=== PATIENT | female | born 2000 | race Caucasian/White ===

== ENCOUNTER 2020-09-10 16:59 | Emergency (ER) | payer OTHER, SELFPAY ==
--- NOTE | ~2020-09-10 | CT_ITS ---
EXAMINATION: CT chest abdomen pelvis w con DATE: 09/10/2020 19:31 INDICATION: Abdominal pain and cramping TECHNIQUE: Computed tomography (CT) of the abdomen, and pelvis was performed with 100 mL Omnipaque-35 0 intravenous contrast. Automated exposure control and iterative reconstruction technique were employ ed. The dose-length product was 205.02 mGy-cm. COMPARISON: None FINDINGS: Lung bases are clear. Heart size is normal. No pericardial or pleural effusion. Liver, gallbladder, s pleen, pancreas, bilateral adrenal glands and kidneys are normal. The anteverted uterus, bladder and bilateral adnexa are unremarkable. The appendix is normal. There is some movement artifact involving multiple loops of bowel in the upper pelvis. There is however no evident bowel wall thickening or dil ation to suggest obstruction. Small amount of likely physiologic free fluid in the pelvis. No abscess or free intraperitoneal gas. No pathologically enlarged abdominal or pelvic lymphadenopathy. Bones a re unremarkable. IMPRESSION: 1. No acute intra-abdominal/pelvic process. Reviewed, dictated and finalized at location A. URE ROOM WORKER
[2020-09-10 17:26] VITALS: BP 136/79; PULSE 62; RESP 18; TEMP 36.2; O2SAT 100
--- NOTE | 2020-09-10 17:45 | ED.ABDPAIN ---
HPI - Abdominal Pain General Chief Complaint: Abdominal Pain Stated Complaint: abd pain, bloody stools Time Seen by Provider: 09/10/20 17:37 Source: patient Mode of arrival: ambulatory Limitations: no limitations History of Present Illness HPI narrative: Patient is a 20-year-old female complaining of lower abdominal cramping, 4 out of 10, nonradiating, accompanied by diarrhea and blood in her stool, had 2 episodes yesterday, none today. Patient denies any nausea, vomiting, fever or chills. Patient denies any hematemesis, hemoptysis or melena. Related Data Allergies Allergy/AdvReac Type Severity Reaction Status Date / Time erythromycin base AdvReac Unknown Nausea Verified 09/10/20 17:49 Review of Systems Review of Systems: All systems reviewed & are unremarkable except as noted in HPI and below Constitutional: Constitutional: Denies body ache(s), Denies chills, Denies excessive sweating, Denies fatigue, Denies fever(s), Denies headache(s), Denies lethargy, Denies malaise, Denies weakness and Denies weight loss Eyes: Eyes: Denies blurry vision, Denies change in vision and Denies loss of vision ENT: Denies dizziness, Denies ear discharge, Denies headache(s), Denies lip swelling, Denies epistaxis, Denies nasal congestion, Denies neck pain, Denies throat swelling and Denies tongue swelling Cardiovascular: Cardiovascular: Denies chest pain, Denies chest pain at rest, Denies chest pain with activity, Denies diaphoresis, Denies rapid heart rate, Denies edema, Denies irregular heart rhythm, Denies lightheadedness, Denies palpitations, Denies dyspnea and Denies dyspnea on exertion Respiratory: Respiratory: Denies chest congestion, Denies cough, Denies hemoptysis, Denies dyspnea and Denies dyspnea on exertion Gastrointestinal: Gastrointestinal: Denies melena, Denies diarrhea, Denies nausea, Denies vomiting and Denies hematemesis Musculoskeletal: Musculoskeletal: Denies abnormal gait, Denies deformity, Denies joint swelling, Denies limited range of motion, Denies neck pain and Denies numbness Neurologic: Denies Abnormal speech present, Denies abnormal gait, Denies confusion, Denies dizziness, Denies headache(s), Denies focal weakness, Denies loss of vision, Denies numbness, Denies Other visual disturbances, Denies Sensory deficit (Neuro) and Denies weakness Psychiatric: Psychiatric: Denies confusion, Denies depression, Denies auditory hallucinations, Denies homicidal ideation and Denies suicidal ideation Endocrine: Endocrine: Denies cold intolerance, Denies excessive sweating, Denies fatigue, Denies heat intolerance and Denies palpitations Hematologic/Lymphatic: Hematologic/Lymphatic: Denies easy bleeding and Denies easy bruising Allergic/Immunologic: Allergic/Immunologic: Denies lip swelling, Denies throat swelling and Denies tongue swelling PMFSH Family History Family History Grandparent Diabetes mellitus Family history of glaucoma Hypertension Malignant neoplasm of prostate Family history of malignant neoplasm Mother Family history of arthritis Social History Social History Smoking status: Never smoker Alcohol intake: current Drinks per week: 2 Exam Const: General: cooperative, healthy appearing, comfortable, no acute distress, well developed, alert and awake; No confusion Orientation/consciousness: oriented to person, oriented to place, oriented to time, patient oriented x3 and No confusion Limitations: no limitations HENMT: Head: normal to inspection, normocephalic and atraumatic Ears: hearing grossly normal bilaterally, TM normal on the right and TM normal on the left General nose exam: Normal external nose present, Normal nares present and No nasal discharge present Face and sinus: normal facial exam Mouth: Yes Normal oral and palatal mucosa present, Yes lip normal, Yes tongue normal and Yes oropharynx
[2020-09-10] MEDS: SODIUM CHLORIDE 0.9% IV 1,000 ML 999 ML IV CONT (17:49)
[2020-09-10 17:50] LABS: Alanine Aminotransferase 15 U/L (4-35); Albumin Level 3.9 g/dL (3.5-5.1); Alkaline Phosphatase 45 U/L (38-126); Anion Gap 3 mmol/L (8-16); Aspartate Amino Transferase 30 U/L (14-36); Bilirubin,Total 0.3 mg/dL (0.2-1.3); Blood Urea Nitrogen 12 mg/dL (7-17); Calcium 8.6 mg/dL (8.4-10.2); Carbon Dioxide 29 mmol/L (22-30); Chloride 105 mmol/L (98-107); Estimated CRCL calculation 71 ml/min; Estimated Glomerular Filt Rate > 60; Glucose 93 mg/dL (65-105); Lipase 67 U/L (23-300); Potassium 3.5 mmol/L (3.4-5.0); Sodium 137 mmol/L (137-145)
[2020-09-10 18:08] LABS: Add Urine Microscopic? NO; Appearance Urine Clear (Clear); Bilirubin Urine Negative (Negative); Blood Urine Negative (Negative); Color Urine Straw (Yellow); Glucose Urine UA Negative (Negative); Ketones Urine Negative (Negative); Leukocyte Esterase Ur Negative LEU/UL (Negative); Nitrate Urine Negative (Negative); Protein Urine Negative (Negative); Specific Grav Ur 1.009 (1.001-1.035); Urobilinogen Urine Negative mg/dL (<2.0)
[2020-09-10 18:09] LABS: Basophils Absolute Auto 0.1 K/mm3 (0.0-0.1); Basophils Percent Auto 0.9 % (0.2-1.2); Eosinophils Absolute Auto 0.1 K/mm3 (0-0.3); Eosinophils Percent Auto 1.6 % (0-4.4); Hematocrit 39.2 % (37.0-47.0); Hemoglobin 13.7 g/dL (12.0-15.0); Immature Granulocyte Absolute 0.01 K/mm3 (0.00-0.031); Immature Granulocyte Percent A 0.2 % (0-0.5); Lymphocytes Absolute Auto 2.22 K/mm3 (0.9-3.2); Lymphocytes Percent Auto 39.3 % (18.3-44.2); Mean Corpuscular HGB Conc 34.9 g/dl (32-36); Mean Corpuscular Hemoglobin 30.4 pg (26-34); Mean Corpuscular Volume 87.1 fl (80-100); Monocytes Absolute Auto 0.5 K/mm3 (0.1-0.6); Monocytes Percent Auto 8.3 % (2.6-8.5); Neutrophils Absolute Auto 2.8 K/mm3 (1.3-6.7); Neutrophils Percent Auto 49.7 % (45.5-73.1); Platelet Count Result 255 k/mm3 (150-375); Red Cell Distribution Width 11.3 % (11.5-14.5); White Blood Count 5.7 K/mm3 (4.5-10.0)
[2020-09-10 19:50] VITALS: BP 122/84; PULSE 65; RESP 12; O2SAT 100
[2020-09-10 20:20] VITALS: BP 113/79; PULSE 100; RESP 15; O2SAT 100
== END 2020-09-10 20:55 | disposition home or self-care (01) ==
PROVIDERS: Emergency Medicine; Emergency Provider Emergency Medicine; PCP Family Medicine
DX: K52.9 Noninfective gastroenteritis and colitis, unspecified (principal)
CPT/HCPCS: 36415; 74177; 80053; 81003; 81025; 83690; 85025; 96360; 99284; J7030; Q9967

== ENCOUNTER → 2022-09-22 11:32 | Outpatient (CLI) | payer OTHER, SELFPAY ==
--- NOTE | ~2022-09-22 | XR_ITS ---
EXAMINATION: XR fl inj knee RT for MR/CT DATE: 09/22/2022 12:27 INDICATION: Complex tear of the medial meniscus of the right knee presented with generalized right kn ee pain and swelling after palpable pop while doing squats 3 weeks prior. TECHNIQUE: A time-out was performed to verify the patient's name, date of , and procedure to b e performed. The procedure including the risks, benefits, and alternatives was discussed with the pat ient. Risks discussed included bleeding and infection. The patient understood the risks and agreed to proceed. The skin overlying the lateral right knee joint was prepped and draped in usual sterile fa shion. Anesthetic was administered with 1% lidocaine subcutaneously. A 22 G needle was advanced und er fluoroscopic guidance into the joint. Injection of 1 mL of Omnipaque 240 confirmed intra-articula r position of the needle. Subsequently, injectate consisting of 40 mL of 7:3:2 mixture of sterile sa line:Omnipaque 240:1% lidocaine mixed 200:1 with 529 mg/mL Multihance gadolinium contrast was injecte d with intra-articular administration confirmed with intermittent fluoroscopy. The needle was removed and the entry site was cleaned and dressed. There were no immediate complications. Fluoroscopy expo sure time was 0.1 minutes. The total number of images was 9. FINDINGS: Real-time fluoroscopy demonstrates the needle in the right knee joint. IMPRESSION: 1. Successful right knee joint injection of dilute gadolinium contrast mixture for subsequent MRI art hrogram which will be dictated separately. Reviewed, dictated and finalized at location A. NGUAL SOCIAL WORKER IMPRESSION: 1. Successful right knee joint injection of dilute gadolinium contrast mixture for subsequent MRI arthrogram which will be dictated separately.
--- NOTE | ~2022-09-22 | MR_ITS ---
EXAMINATION: MR knee RT w con DATE: 09/22/2022 12:41 INDICATION: Complex medial meniscal tear TECHNIQUE: Magnetic resonance imaging (MRI) of the right knee was performed without intravenous contr ast. Sequences included coronal PD-weighted FSE, coronal PD-weighted FS FSE, sagittal T2-weighted FS E, sagittal PD-weighted FS FSE and axial PD weighted fat saturated FSE. COMPARISON: None. FINDINGS: Medial compartment: Mild increased T1 contrast signal extends into a complex tear of the posterior horn and posterior bod y of the medial meniscus with both a longitudinal horizontal component extending to the inferior bandar cular surface and a component at the posterior horn which appears oblique in all 3 planes contacting the superior and inferior articular surfaces at the inner third of the posterior horn. Contrast exten ds into a small multiloculated para meniscal or cyst which extends 1.4 cm medial collateral and 5 x 4 mm maximal orthogonal dimensions along the periphery of the posterior horn. Articular cartilage is n ormal. Lateral compartment: Lateral meniscus is normal. Small region of heterogeneous cartilage signal with tiny focus of suscept ibility artifact at the posterior most weightbearing lateral femoral condyle. Cartilage is otherwise normal. Patellofemoral compartment: Cartilage swelling and deep fissuring at the mid inferior patellar apical ridge and inferior aspect o f the lateral patellar facet, the latter with underlying mild subarticular edema-like signal change. Less severe partial thickness chondral fissuring at the caudal half of the medial patellar facet. Sag ittal oriented deep chondral fissure with small amount of underlying subarticular edema-like signal c hange at the cephalad aspect of the medial trochlea. Mild chondral surface regularity and minimal und erlying edema-like signal change at the caudal aspect of the lateral trochlea. Ligaments and tendons: Anterior and posterior cruciate ligaments are normal. The medial collateral ligament and fibular kay ateral ligament complex are normal. The extensor mechanism is normal. The visualized medial and later al hamstring tendons as well as the iliotibial band are normal. Fluid: Contrast extends into a small multilobulated Rendon's cyst. A few tiny low signal intensity injected g as bubbles in the nondependent recess along side the odd facet of the patella. No loose osteochondral bodies identified. Osseous/other: Bone alignment is normal. No fracture or pathologic marrow replacing process. Additional foci of susc eptibility artifact likely related to prior surgery projecting along the lateral side of the intratro chanteric notch posterior to the footplate of the anterior cruciate ligament. IMPRESSION: 1. Complex tear of the posterior horn and posterior body of the medial meniscus with associated small multilobulated para meniscal cyst along the periphery of the posterior horn. 2. 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 3. Small Rendon's cyst. Reviewed, dictated and finalized at location A. T NURSE MANAGER IMPRESSION: 1. Complex tear of the posterior horn and posterior body of the medial meniscus with associated small multilobulated para meniscal cyst along the periphery of the posterior horn. 2. Mild patellofemoral osteoarthritis with regions of high-grade patellar and t rochlear chondromalacia. 3. Small Rendon's cyst.
== END ==
DX: S83.231A Complex tear of medial meniscus, current injury, right knee, initial encounter (principal); X58.XXXA Exposure to other specified factors, initial encounter; M17.11 Unilateral primary osteoarthritis, right knee; M71.21 Synovial cyst of popliteal space [Baker], right knee
CPT/HCPCS: 20610; 73722; 77002; A9577; Q9967

== ENCOUNTER 2024-05-08 08:02 | Emergency (ER) | payer OTHER, SELFPAY ==
[2024-05-08 08:11] VITALS: BP 126/83; PULSE 117; RESP 16; TEMP 36.9; O2SAT 100
--- NOTE | 2024-05-08 08:20 | ED.URI ---
HPI - URI/Sore Throat General Chief Complaint: Upper Respiratory Infection Stated Complaint: congestion,sorethroat Source: patient, RN notes reviewed and old records reviewed Mode of arrival: ambulatory Limitations: no limitations History of Present Illness HPI Narrative: 23 year old female who presents to [facility] with complaints of head congestion, cough, nasal drainage since the 30 of April, Patient reports that her symptoms increased since Tuesday the 04 of May with cough, aching all over, generally feeling bad. Patient states she started with a sore throat yesterday and she had a 99.8F temp this morning. Patient has been taking Sudafed, Mucinex, and also some DayQuil for her symptoms. Patient reports that she needs to get feeling better because her bridal shower is this weekend. MD elicited complaint: fever (low grade), cough, sore throat, rhinorrhea and nasal congestion Onset (ago): day(s) (9-10 days) Consistency: progressively worsening Severity: moderate Able to tolerate fluids by mouth: Yes Treatments prior to arrival: other (dayQuil Mucinex, and Sudafed) Related Data Home Medications Medication Instructions Recorded Confirmed levonorgestrel 14 mcg/24 hr (up to 1 device intrauterine ONCE 02/22/23 05/08/24 3 yrs) 13.5 mg intrauterine device ([facility]) Allergies Allergy/AdvReac Type Severity Reaction Status Date / Time No Known Allergies Allergy Verified 05/08/24 08:28 Review of Systems Review of Systems: CONSTITUTIONAL: Reports malaise, chills, sweats, or fever. EYES: Denies visual changes, redness, or discharge. ENT: Reports rhinorrhea, congestion, sinus pain,no otalgia and positive sore throat. CARDIOVASCULAR: Denies chest pain, palpitations, or edema. RESPIRATORY: Reports cough.? Denies dyspnea. GASTROINTESTINAL: Denies abdominal pain, nausea, vomiting, diarrhea SKIN: Denies rash or itching. MUSCULOSKELETAL: Reports myalgia. NEUROLOGIC: Denies headache. All systems reviewed & are unremarkable except as noted in HPI and below PMFSH Past Medical History Medical History Encounter for initial insertion of intrauterine contraceptive device Surgical History Surgical History H/O gynecological procedure hira insertion H/O right knee surgery 10/2020 Family History Family History Grandparent Diabetes mellitus Family history of glaucoma Hypertension Malignant neoplasm of prostate Family history of malignant neoplasm Mother Family history of arthritis Social History Social History Smoking status: Never smoker Alcohol intake: current Drinks per week: 2 Substance use: never Substance use type: does not use Lack of Transportation: No Lack of Food: Never True Current Housing: I Have Housing Concerned About Future Housing: No Difficulty Paying Gas/Electric Bills: No Difficulty Paying for Meds: No Currently Unemployed: No Education: Bachelor's Degree Difficulty w/ Childcare or Family Care: No Living arrangements: with family Occupation/Education: occupation Additional occupation/education comments: Teacher Gender identity (if verbalized by the patient): Female Sexual Orientation (if Verbalized by the Patient): Straight or Heterosexual Comments At time of signature, agree with nursing past medical, surgical, social and family history. There is no relevant family history pertinent to the presenting complaint Exam Narrative: GENERAL: Well-appearing, well-nourished, and in no acute distress. HEAD: Normocephalic EYES: PERRLA, conjunctivae clear ENT: Nares clear, turbinates edematous and erythematous, clear discharge. Mucous membranes moist, sinus pressure headache, TM pearly patterson with dull light reflex
[2024-05-08 08:40] LABS: EDSTREPNEGPOS1 Negative (Negative)
[2024-05-08 08:50] LABS: EDCOVIDSCREEN Negative (Negative)
[2024-05-08 08:51] LABS: EDINFLUASCREEN Negative (Negative); EDINFLUBSCREEN Negative (Negative)
== END 2024-05-08 08:56 | disposition home or self-care (01) ==
PROVIDERS: Emergency Provider Registered Nurse
DX: J32.9 Chronic sinusitis, unspecified (principal); Z20.822 Contact with and (suspected) exposure to COVID-19
CPT/HCPCS: 87081; 87426; 87804; 87880; 99213; G0463

== ENCOUNTER 2025-06-17 15:53 | Inpatient (IN) | payer OTHER, SELFPAY ==
[2025-06-17] VITALS (26 sets, daily range): BP systolic 104–138; BP diastolic 60–87; PULSE 25–101; TEMP 36.8; O2SAT 81–100; BMI 30.4
--- NOTE | 2025-06-17 17:21 | P.PNAN_ITS ---
Anes - Eval Pre Procedure Procedure: Labor epidural Date/Time: 06/17/25 17:21 Surgeon: Mynor Preop Diagnosis: Abdominal pain with contractions Pre Op Diagnosis: iol Patient Data Age: 25 Gender: F Height: Weight: Last Vital Signs Pulse 89 06/17/25 16:50 BP 111/73 06/17/25 16:50 Pulse Ox 96 06/17/25 17:17 Allergies Allergy/AdvReac Type Severity Reaction Status Date / Time No Known Allergies Allergy Verified 06/17/25 17:05 Home Medications ?Medication ?Instructions ?Recorded ?Confirmed ?Type vits no.126-ferrous fum 1 tablet PO DAILY 05/18/25 History 28 mg iron-folic acid 800 mcg tablet (Classic ) doxylamine succinate 25 mg tablet 25 mg PO QHS PRN criselda sea 11/22/24 05/18/25 History (Unisom (doxylamine)) pyridoxine (vitamin B6) 25 mg 25 mg PO DAILY 11/22/24 05/18/25 History tablet aspirin 81 mg chewable tablet 81 mg PO DAILY 01/16/25 05/18/25 History cetirizine 10 mg capsule (All Day 10 mg PO DAILY PRN a llergy symptoms 05/18/25 05/18/25 History Allergy (cetirizine)) : gestational age HCG: positive Patient hx anesthesia problems: none Family hx anesthesia problems: none Results Review: All pre-operative results and documents have been reviewed as part of the pre-operative evaluation. [facility] Past Medical History Medical History and not yet delivered Overweight (BMI 25.0-29.9) Encounter for removal of intrauterine contraceptive device Encounter for initial insertion of intrauterine contraceptive device Surgical History Surgical History H/O gynecological procedure hira insertion hira removal H/O right knee surgery 10/2020 Family History Family History Grandparent Malignant neoplasm of prostate Diabetes mellitus Family history of malignant neoplasm Hypertension Mother Family history of arthritis Social History Social History Smoking status: Never smoker Second hand tobacco smoke exposure: No Alcohol intake: former Drinks per week: 2 Substance use: never Substance use type: does not use Do You Feel Safe in your Home?: Yes Lack of Transportation: No Lack of Food: Never True Current Housing: I Have Housing Concerned About Future Housing: No Difficulty Paying Gas/Electric Bills: No Difficulty Paying for Meds: No Currently Unemployed: No Education: Master's Degree or Higher Difficulty w/ Childcare or Family Care: No Living arrangements: with family Additional living arrangements comments: Occupation/Education: occupation Additional occupation/education comments: Teacher Gender identity (if verbalized by the patient): Female Sexual Orientation (if Verbalized by the Patient): Straight or Heterosexual Spiritual care concerns: No Exam Day of Procedure 06/17/25 17:21 Patient weight: overweight
[2025-06-17 17:38] LABS: Hematocrit 37.2 % (37.0-47.0); Hemoglobin 13.4 g/dL (12.0-15.0); Immature Granulocyte Percent A 0.3 % (0-0.5); Lymphocytes Absolute Auto 2.16 K/mm3 (0.9-3.2); Mean Corpuscular HGB Conc 36.0 g/dl (32-36); Mean Corpuscular Hemoglobin 32.3 pg (26-34); Mean Corpuscular Volume 89.6 fl (80-100); Nucleated Red Blood Cells Absolute Auto 0.000 K/mm3 (0.0-0.012); Nucleated Red Blood Cells Perc 0.0 % (0.0-0.2); Platelet Count Result 219 k/mm3 (150-375); Red Blood Count 4.15 M/mm3 (4.2-5.4); White Blood Count 11.5 K/mm3 (4.5-10.0)
[2025-06-17] MEDS: DINOPROSTONE 10 MG VAG INSERT VAGINAL (17:44)
--- NOTE | 2025-06-17 18:00 | PM.IMHP ---
H&P: HPI History of Present Illness Date/Time: 06/17/25 18:00 Chief Complaint: Intrauterine at term Narrative: 25-year-old who presents at 39 weeks 6 days for elective induction of labor Review of Systems Cardiovascular: Cardiovascular: Denies chest pain, Denies leg edema, Denies palpitations, Denies dyspnea and Denies dyspnea on exertion Respiratory: Respiratory: Denies cough, Denies dyspnea and Denies dyspnea on exertion Gastrointestinal: Gastrointestinal: Denies abdominal pain, Denies constipation, Denies diarrhea, Denies nausea and Denies vomiting Genitourinary: Genitourinary: Denies hematuria, Denies urinary frequency, Denies dysuria, Denies pelvic pain, Denies urinary incontinence and Denies vaginal discharge Neurologic: Reports system reviewed and no additional complaints, except as documented Psychiatric: Psychiatric: Reports no additional psychiatric complaints Endocrine: Endocrine: Denies palpitations PMFSH Past Medical History Medical History and not yet delivered Overweight (BMI 25.0-29.9) Encounter for removal of intrauterine contraceptive device Encounter for initial insertion of intrauterine contraceptive device Surgical History Surgical History H/O gynecological procedure hira insertion hira removal H/O right knee surgery 10/2020 Family History Family History Grandparent Malignant neoplasm of prostate Diabetes mellitus Family history of malignant neoplasm Hypertension Mother Family history of arthritis Social History Social History Smoking status: Never smoker Second hand tobacco smoke exposure: No Alcohol intake: former Drinks per week: 2 Substance use: never Substance use type: does not use Do You Feel Safe in your Home?: Yes Lack of Transportation: No Lack of Food: Never True Current Housing: I Have Housing Concerned About Future Housing: No Difficulty Paying Gas/Electric Bills: No Difficulty Paying for Meds: No Currently Unemployed: No Education: Master's Degree or Higher Difficulty w/ Childcare or Family Care: No Living arrangements: with family Additional living arrangements comments: Occupation/Education: occupation Additional occupation/education comments: Teacher Gender identity (if verbalized by the patient): Female Sexual Orientation (if Verbalized by the Patient): Straight or Heterosexual Spiritual care concerns: No Meds Home Medications and Allergies Home Medications ?Medication ?Instructions ?Recorded ?Confirmed ?Type vits no.126-ferrous fum 1 tablet PO DAILY 10/25/24 06/17/25 History 28 mg iron-folic acid 800 mcg tablet (Classic ) doxylamine succinate 25 mg tablet 25 mg PO QHS PRN nausea 11/22/24 06/17/25 History (Unisom (doxylamine)) pyridoxine (vitamin B6) 25 mg 25 mg PO DAILY 11/22/24 06/17/25 History tablet aspirin 81 mg chewable tablet 81 mg PO DAILY 01/16/25 06/17/25 History cetirizine 10 mg capsule (All Day 10 mg PO DAILY PRN allergy symptoms 05/18/25 05/18/25 History Allergy (cetirizine)) Allergies Allergy/AdvReac Type Severity Reaction Status Date / Time No Known Allergies Allergy Verified 06/17/25 17:44 Vital Signs Vital Signs - 24 hr 06/17/25 16:31 06/17/25 16:43 06/17/25 16:48 Pulse Rate Blood Pressure Pulse Oximetry 100 100 Oxygen Delivery Room Air 06/17/25 16:50 06/17/25 16:51 06/17/25 16:56 Pulse Rate 89 Blood Pressure 111/73 Pulse Oximetry 97 96 Oxygen Delivery 06/17/25 17:01 06/17/25 17:02 06/17/25 17:07 Pulse Rate Blood Pressure Pulse Oximetry 95 97 94 Oxygen Delivery 06/17/25 17:12 06/17/25 17:17 06/17/25 17:22 Pulse Rate Blood Pressure Pulse Oximetry 90 96 96 Oxygen Delivery 06/17/25 17:27 06/17/25 17:32 06/17/25 17:36 Pulse Rate Blood Pressure Pulse Oximetry 97 95 100 Oxygen Delivery 06/17/25 17:37 06/17/25 17:41 06/17/25 17:41 Pulse Rate 79 Blood Pressure 131/87 Pulse Oximetry 86 L 82 L Oxygen Delivery 06/17/25 17:41 06/17/25 17:46 Pulse Rate 66 Blood Pressure 125/73 Pulse Oximetry 81 L Oxygen Delivery Exam Const: General: no acute distress Eyes: EOM: EOMs intact bilaterally Neck: Neck: supple Thyroid: thyroid normal Chest: Breast/axilla inspection: normal inspection of the breasts Breast/axilla palpation: normal palpation of the breasts, normal palpation of the axillae and no axillary lymphadenopathy Resp: Effort & Inspection: normal respiratory effort Auscultation: clear to auscultation bilaterally Cardio: Rate: regular rate Rhythm: regular rhythm GI: Inspection: non-distended and other (Gravid) GI Palp: Yes Soft to palpation, No Tenderness to palpation present (GI) and No Guarding due to palpation present (GI) Auscultation: normal bowel sounds : Speculum Exam - Vagina: No vaginal bleeding OB/external & speculum: external exam normal; No vaginal bleeding Skin: General skin exam: normal color and no rashes or lesions noted Neuro: Cognition (Neuro): normal cognition Speech: normal speech Extrem: General: normal to inspection Psych: Mental Status: mental status grossly normal Affect: normal affect H&P: Results Labs Labs: Short CBC 06/17/ Range/Units 17:21 WBC 11.5 H (4.5-10.0) K/mm3 Hgb 13.4 (12.0-15.0) g/dL Hct 37.2 (37.0-47.0) % Plt Count 219 (150-375) k/mm3 Assessment and Plan Assessment and plan (1) : Code(s): Z34.90 - Encounter for supervision of normal , unspecified, unspecified trimester Status: Acute Assessment and Plan: 25-year-old at 39 weeks 6 days Admit to L&D Routine admission orders labs reviewed Rh positive GBS negative Plan for Cervidil induction of labor Continuous EFM May have epidural p.r.n.
[2025-06-17 18:22] LABS: Syphilis IgG/IgM Antibody Non-Reactive (Nonreactive)
[2025-06-18] VITALS (315 sets, daily range): BP systolic 90–134; BP diastolic 54–89; PULSE 48–111; TEMP 36.3–36.6; O2SAT 94–100
[2025-06-18] MEDS: LACTATED RINGERS 500 ML 999 ML IV CONT (10:52)
[2025-06-18] MEDS: LACTATED RINGERS 1,000 ML 125 ML IV CONT ×3 (12:22→22:39)
[2025-06-18] MEDS: OXYTOCIN 30 UNITS/NS 500 ML 30 UNITS/500 ML BAG IV CONT (15:22)
[2025-06-18] MEDS: ONDANSETRON INJ 4 MG/2 ML VIAL IV PUSH (17:44)
[2025-06-18] MEDS: SODIUM CHLORIDE 0.9% IV 300 ML 600 ML I-UTERINE (21:51)
[2025-06-18] MEDS: TERBUTALINE SULFATE 1 MG/ML VIAL 0.25 MG SUB-Q (22:17)
[2025-06-18] MEDS: FAMOTIDINE 20 MG/2 ML VIAL IV PUSH (22:45)
[2025-06-19] VITALS (29 sets, daily range): BP systolic 118–124; BP diastolic 64–80; PULSE 55–97; RESP 15–16; TEMP 36.7–37.2; O2SAT 93–100
--- NOTE | 2025-06-19 00:04 | PM.OBPRVD ---
OB - Vaginal Delivery Note Procedure Delivery date: 06/19/25 Induction method: Per Cervidil Protocol Delivery augmentation: Rupture of Membranes and Pitocin Delivery monitor: Internal FHT and Internal Uterine Route of delivery: Episiotomy description: None Laceration Description: Perineal - 1st Degree Delivery repair: vicryl Specimen: No Quantitative Blood Loss (ml): 150 Anesthesia type: Epidural Disposition: Floor Complications: No immediate complications Narrative: Patient pushed for a spontaneous vaginal delivery. A nuchal x 1 was noted and delivered through. The fetus was delivered atraumatically and placed on the maternal abdomen. The cord was clamped and cut after 1 minute of life. The cord was double clamped and cut and a segment of cord was collected for cord gases. Cord blood was collected for blood type and Coomb's testing. The placenta delivered spontaneously and was noted to be intact. The perineum was inspected and a 1st degree perineal laceration was noted. The laceration was repaired with 3-0 vicryl in a running fashion. The fundus was noted to be firm and good hemostasis was noted. The mom and infant were stable in the delivery room. [place] Baby Date of : 06/19/25 Time of : 23:53 Gestational Age by Date: 40 Infant gender: Male Weight (pounds): 7 Weight (ounces): 0 presentation: vertex position: Right Occiput Anterior Placenta delivery description: Spontaneous Cord Vessel Description: 3 Vessels and Nuchal Cord score one minute: 8 score five minutes: 9
[2025-06-19] MEDS: OXYTOCIN 30 UNITS/NS 500 ML 30 UNITS/500 ML BAG 125 UNITS IV CONT (00:34)
--- NOTE | 2025-06-19 02:28 | OBPPTRN ---
Patient transferred to post room #[id number] via wheelchair. Support person present. Oriented to unit, room, information board, rooming in, admission packet and security measures. Patient verbalizes understanding.
--- NOTE | 2025-06-19 08:38 | PC.NURSE ---
On 06/19/25, the student, Myranda Penn, provided care and completed [facility] documentation on this patient. I have reviewed the student's documentation and agree with the findings.
--- NOTE | 2025-06-19 09:42 | P.PNOB_ITS ---
OB - PN: Subj Subjective Date/time seen: 06/19/25 09:42 Patient comments: no complaints, pain well controlled and tolerating diet [place] feeding status: exclusively breast feeding Narrative: patient doing well this AM. No complaints. Pain is well controlled. She reports minimal bleeding. She is ambulating and voiding without difficulty. She is tolerating PO. She denies N/V, fever, chills. OB - PN: Obj Data Labs 06/17/25 17:21 OB - PN A/P Plan day: 1 Plan: routine care Comments: patient doing well H/H stable desires circumcision. Risks, benefits, alternatives reviewed. continue routine care Time Spent With Patient Time: Total time spent is greater than 50% in coordination of care (as documented) at patient's floor/unit and/or counseling patient: Time with patient: less than 15 minutes Review of Systems 2 Review of Systems: All systems reviewed & are unremarkable except as noted in HPI and below Exam 2 Const: General: comfortable and no acute distress Resp: Effort & Inspection: normal respiratory effort Cardio: Rate: regular rate GI: GI Palp: Yes Soft to palpation and No Tenderness to palpation present (GI) Auscultation: normal bowel sounds Other: fundus firm and below umbilicus. Psych: Affect: normal affect
--- NOTE | 2025-06-19 11:02 | PC.NURSE ---
[id number] Consulted with patient to assess needs related to . Discussed with mother her successes, concerns and any questions she has. Per mother she had fed with the nipple shield one time, CLC RN does not feel that it is needed. We reviewed working with the infant, supporting breast, protecting her nipples with an optimal deep latch, good positioning, and good hand washing. Encouraged understanding the benefits of skin to skin, responding to feeding cues, frequencies of feeding 8-12 times in 24 hours (approximately 2-3 hours), duration of feedings, milk production, intake/output feeding sheet and signs of adequate intake encouraging swallowing at the breast. Reviewed positioning and alignment, supporting breast, off-centered (asymmetrical latch) and leading with the chin with big, open, wide gape. Infant latched optimally to the [right] breast in [cradle] position. Education given to the mother of how to visualize the suckling (with good rocking jaw motion) swallows (dropping of the lower jaw) and how to listen for drinking at the breast (the ka sound). The was [able] to maintain latch without discomfort to mother. Nipple care reviewed with optimal latch, good positioning and using clean hands when touching her breast. Resources used to facilitate learning were used from the [visual handouts/ tool/mom and baby guide]. Mother voiced understanding of the education shared, to call for assistance if the does not latch or if there is discomfort with . Reported to the Primary RN.
--- NOTE | 2025-06-19 14:50 | PC.NURSE ---
Assisted patient with flange sizing and Spectra pump set up. She measures 18mm and she has a 24mm flange. Advised that it is okay to start with the 24mm and purchase a smaller flange or insert to size down if needed. Patient states that she has seen some videos on pump use but requests a quick tutorial. Patient is educated on settings, duration, and expected volumes at this time . Pumping should not hurt and she should use the highest comfortable vacuum setting. She is referred back to her user manual for further instruction. Primary RN updated.
[2025-06-19] MEDS: IBUPROFEN 600 MG TABLET PO ×3 (16:17→22:20)
[2025-06-20 04:37] LABS: Hematocrit 34.3 % (37.0-47.0); Hemoglobin 11.9 g/dL (12.0-15.0)
[2025-06-20 08:10] VITALS: BP 116/69; PULSE 65; RESP 16; TEMP 36.8; O2SAT 99
--- NOTE | 2025-06-20 08:30 | PC.NURSE ---
Consulted with mother concerning needs and she shared that she would like to only use the breast pump and bottle feed her infant. She is currently using her Spectra breast pump without pain. Mother is feeding appropriately for growth of infant and understands stimulating to eat if needed. has had appropriate feedings in the last 24 hours meets the outcomes for weight, output, blood sugar and jaundice at this time. Reinforced understanding of milk production, transition of milk, signs of adequate intake, transition of stool, prevention/relief of engorgement, plugged ducts, mastitis, responsive feeding watching for feeding cues, the different methods of stimulating infant to feed, community resources, and when to call a provider using the resource of the feeding sheet along with the mom and baby guide. Mother voiced understanding of the information shared, is confident to continue effectively feed her at home, when to call for assistance, denies any additional assistance or education at this time. Reported to the Primary RN.
--- NOTE | 2025-06-20 08:30 | PM.OBDSVD ---
DS: Admitting Diagnosis Discharge Date 06/20/25 Admitting Diagnosis intrauterine at term DS: Discharge Diagnosis Discharge Diagnosis (1) Normal vaginal delivery: Code(s): O80 - Encounter for full-term uncomplicated delivery Status: Acute OB - DS: Summary OB Procedures : None OB Procedures Intrapartum: Spontaneous Vag Delivery OB Procedures: : None Peripartum Data Laceration Description: Perineal - 1st Degree Episiotomy description: None Status at Discharge Functional status at discharge: independent ambulation Overall status at discharge: patient is back to baseline Time Spent with Patient Time attestation: Total time spent providing and/or coordinating discharge services: Time spent: Less than 30 minutes Exam Const: General: comfortable and no acute distress Resp: Effort & Inspection: normal respiratory effort Auscultation: clear to auscultation bilaterally Cardio: Rate: regular rate GI: GI Palp: Yes Soft to palpation Auscultation: normal bowel sounds Other: Fundus firm below umbilicus Psych: Appearance: grossly normal Mental Status: mental status grossly normal Affect: normal affect DS: Data Data Completed and Pending Labs on day of discharge: Labs from last 24 hours 06/20/25 04:20 Hgb 11.9 L Hct 34.3 L Discharge Plan Discharge Consulting providers: Martina Campos Discharging Clinician: Ki Lowe Patient Disposition: Home Activity: as tolerated and pelvic rest Diet: regular Patient Instructions: Antibiotic Form, Vaginal Delivery (DC) Patient Language: Samoan Stand Alone Forms: General Discharge Information Follow-up/Referrals: Ki Lowe MD [Physician, [employer] HELPER] Discharge Medications: New ibuprofen 600 mg tablet 600 mg PO Q6H PRN (Reason: pain) Qty: 30 0RF acetaminophen 500 mg tablet 500 mg PO Q6H PRN (Reason: pain) Qty: 30 0RF Continued Classic 28 mg iron- 800 mcg tablet 1 tablet PO DAILY Unisom (doxylamine) 25 mg tablet 25 mg PO QHS PRN (Reason: nausea) pyridoxine (vitamin B6) 25 mg tablet 25 mg PO DAILY All Day Allergy (cetirizine) 10 mg capsule 10 mg PO DAILY PRN (Reason: allergy symptoms) Discontinued aspirin 81 mg tablet,chewable 81 mg PO DAILY Date of admission: 06/17/25 15:53 Primary Care Provider: PHYSICIAN,REGISTERED NURSE NURSERY Admitting Provider: Ki Lowe Attending physician on admission: Ki Lowe Condition: Stable
[2025-06-21 09:22] VITALS: BP 126/68; PULSE 87; RESP 18; TEMP 37.1; O2SAT 100
== END 2025-06-20 12:40 | disposition home or self-care (01) | DRG 807 ==
LOC: ANHLDR 15:55 → ANHOB2 06-19 02:28
PROVIDERS: Admitting Provider Student in an Organized Health Care Education/Training Program; Visit Provider Student in an Organized Health Care Education/Training Program
DX: O69.81X0 Labor and delivery complicated by cord around neck, without compression, not applicable or unspecified (principal); Z37.0 Single live birth; Z3A.40 40 weeks gestation of pregnancy; O70.0 First degree perineal laceration during delivery
CPT/HCPCS: 36415; 85014; 85018; 85025; 86593; 86850; 86900; 86901; A9270; J2405; J2590; J2795; J3105; J7030; J7120